=== PATIENT | female | born 1990 | race Caucasian/White ===

== ENCOUNTER 2021-01-27 13:13 | Emergency (ER) | payer OTHER, MEDICAID, SELFPAY ==
--- NOTE | ~2021-01-27 | CT_ITS ---
EXAMINATION: CT HEAD WITHOUT CONTRAST CLINICAL INFORMATION: Trauma COMPARISON: CT had noncontrast 12/04/2018 TECHNIQUE: Contiguous axial imaging was performed from the skull base to vertex without intravenous administration of contrast. Additional 2-D coronal and sagittal reformatted images are generated on the CT workstation and uploaded to PACS. This CT examination was performed using dose optimization techniques as appropriate, variously including the following: *Automated exposure control *Adjustment of mA and/or kV according to patient size (this includes techniques or standardized protocols for targeted exams where dose is matched to indication/reason for exam; i.e. extremities or head) *Use of iterative reconstruction technique DLP: 610 mGy-cm FINDINGS: There is no intracranial hemorrhage, hematoma, or extra-axial fluid collection. The ventricles are normal in size. There is no hydrocephalus, edema, or mass effect. The ramesh-white matter differentiation appears symmetric. There is no visible acute territorial infarct or mass lesion. The calvarium appears intact. There is no pneumocephalus or orbital emphysema. There is variable mucosal thickening scattered throughout all of the sinuses. Small air-fluid levels are present in the maxillary sinuses. The middle ears and mastoids are well-aerated and clear. CT/CT head/brain wo con IMPRESSION: 1. No acute intracranial abnormality. 2. Mucosal thickening paranasal sinuses. Small air-fluid levels in maxillary sinuses. 3. Middle ears and mastoid air cells clear.
[2021-01-27 14:16] VITALS: BP 134/93; PULSE 116; RESP 18; TEMP 36.9; O2SAT 99; BMI 24.1
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
[2021-01-27] MEDS: Ibuprofen 600 MG TABLET PO (15:46)
[2021-01-27] MEDS: Acetaminophen 325 MG TABLET 650 MG PO (15:46)
[2021-01-27 17:13] VITALS: BP 102/60; PULSE 94; RESP 16; TEMP 36.3; O2SAT 97
== END 2021-01-27 17:52 | disposition home or self-care (01) ==
PROVIDERS: Emergency Provider Emergency Medicine Emergency Medical Services
DX: S09.90XA Unspecified injury of head, initial encounter (principal); S00.83XA Contusion of other part of head, initial encounter; V43.62XA Car passenger injured in collision with other type car in traffic accident, initial encounter; Y93.89 Activity, other specified; Y92.414 Local residential or business street as the place of occurrence of the external cause; Y99.9 Unspecified external cause status
CPT/HCPCS: 70450; 99284

== ENCOUNTER 2023-03-07 12:44 | Outpatient (REF) | payer MEDICAID, SELFPAY ==
[2023-03-07 13:39] LABS: MANUAL DIFF FLAG NO
[2023-03-07 13:53] LABS: Basophils Absolute Auto 0.1 X10*3/uL (0.0-0.2); Basophils Percent Auto 0.9 % (0-2); Eosinophils Absolute Auto 0.2 X10*3/uL (0.0-0.4); Eosinophils Percent Auto 3.5 % (0-4); Hematocrit 37.7 % (37.0-47.0); Hemoglobin 12.1 g/dl (12.0-16.0); Imm Gran Abs Auto 0.01 X10*3/uL (0.00-0.03); Imm Gran Pct Auto 0.2 % (0.0-0.4); Lymphocytes Absolute Auto 2.5 X10*3/uL (1.2-4.9); Lymphocytes Percent Auto 43.2 % (20-40); Mean Corpuscular HGB Conc 32.1 g/dl (31.0-35.0); Mean Corpuscular Hemoglobin 29.1 pg (27.0-33.0); Mean Corpuscular Volume 90.6 fL (80.0-98.0); Mean Platelet Volume 12.1 fL (9.4-12.3); Monocytes Absolute Auto 0.5 X10*3/uL (0.1-1.2); Monocytes Percent Auto 8.1 % (2-11); Neutrophils Absolute Auto 2.5 x10*3/uL (2.0-8.3); Neutrophils Percent Auto 44.1 % (45-73); Platelet Count 144 X10*3/uL (160-400); Red Blood Count 4.16 X10*6/uL (4.20-5.50); Red Cell Distribution Width 13.8 % (11.0-16.0); White Blood Count 5.7 X10*3/uL (4.8-10.8)
[2023-03-07 14:36] LABS: Anion Gap 13 (12-20); Blood Urea Nitrogen 12 mg/dL (9-16); C Reactive Protein < 0.10 mg/dL (< or = 0.50); Calcium 9.1 mg/dL (8.4-10.2); Carbon Dioxide 25 mmol/L (22-29); Chloride 105 mmol/L (96-108); Cholesterol 168 mg/dL (<200); Erythrocyte Sedimentation Rate 7 MM/HR (0-20); Estimated Glomerular Filt Rate > 60; Glucose Random 112 mg/dL (60-115); HDL Cholesterol 50 mg/dL (>40); Iron 107 mcg/dL (30-160); LDL Cholesterol Calculated 100 mg/dL (<100); Percent Iron Saturation 33 % (15-50); Potassium 3.3 mmol/L (3.3-5.1); Sodium 140 mmol/L (135-145); Total Iron Binding Capacity 329 mcg/dL (228-428); Triglycerides 91 mg/dL (<150); Unsaturated Iron Binding 222 ug/dL
[2023-03-07 14:50] LABS: Ferritin 19 ng/mL (10-122); TSH reflex Free T4 1.05 uIU/mL (0.32-4.0)
[2023-03-08 08:16] LABS: HIV AB/AG Nonreactive (Nonreactive); HIV Num 1 0.06 S/CO (0.00-0.99); ~Hepatitis C Antibody Nonreactive (Nonreactive)
[2023-03-09 08:26] LABS: Syphilis Screen Nonreactive (Nonreactive)
[2023-03-11 01:04] LABS: VITAMIN D (1,25 OH) D3 81 pg/mL; Vit D (1,25-Dihydroxy) Total 81 pg/mL (18-72); Vitamin D (1,25 OH) D2 <8 pg/mL
== END 2023-03-07 12:45 | disposition home or self-care (01) ==
LOC: HO.HHCL 12:44
PROVIDERS: Visit Provider Nurse Practitioner Primary Care
DX: Z00.00 Encounter for general adult medical examination without abnormal findings (principal); Z11.4 Encounter for screening for human immunodeficiency virus [HIV]; F33.3 Major depressive disorder, recurrent, severe with psychotic symptoms; M79.642 Pain in left hand; M79.641 Pain in right hand; Z20.2 Contact with and (suspected) exposure to infections with a predominantly sexual mode of transmission; Z13.220 Encounter for screening for lipoid disorders; Z13.21 Encounter for screening for nutritional disorder
CPT/HCPCS: 36415; 80048; 80061; 82652; 82728; 83540; 84443; 85025; 85652; 86140; 86780; 86803; 87389

== ENCOUNTER 2025-01-02 16:54 | Outpatient (REF) | payer OTHER, MEDICAID, SELFPAY ==
[2025-01-07 11:03] LABS: C. trachomatis RNA TMA NOT DETECTED (NOT DETECTED); N. gonorrhoeae RNA TMA NOT DETECTED (NOT DETECTED); Trichomonas (NAAT) NOT DETECTED (NOT DETECTED)
[2025-01-08 08:16] LABS: HPV Genotype 16 Negative (Negative); HPV Genotype 18 Negative (Negative); HPV High Risk Negative (Negative)
== END 2025-01-02 16:55 | disposition home or self-care (01) ==
LOC: HO.HHCLNP 16:54
DX: Z12.4 Encounter for screening for malignant neoplasm of cervix (principal); Z11.51 Encounter for screening for human papillomavirus (HPV)
CPT/HCPCS: 87491; 87591; 87626; 87661; 88175